=== PATIENT | female | born 1950 | race Caucasian/White ===

== ENCOUNTER 2023-10-30 08:32 | Emergency (ER) | payer MEDICARE, OTHER ==
[2023-10-30] MEDS: Ketorolac 30 MG/ML SDV IVPUSH ONE (08:53)
== END 2023-10-30 10:35 | disposition home or self-care (01) ==
LOC: JD.ED 08:32
DX: S42.292A Other displaced fracture of upper end of left humerus, initial encounter for closed fracture (principal); E11.9 Type 2 diabetes mellitus without complications; Z88.0 Allergy status to penicillin; Z88.2 Allergy status to sulfonamides; Z79.84 Long term (current) use of oral hypoglycemic drugs; Z79.899 Other long term (current) drug therapy; Z90.49 Acquired absence of other specified parts of digestive tract; W22.8XXA Striking against or struck by other objects, initial encounter; Y93.01 Activity, walking, marching and hiking
CPT/HCPCS: 73060; 96374; 99284; J1885